=== PATIENT | male | born 1975 | race Caucasian/White ===

== ENCOUNTER 2024-04-23 15:40 | Outpatient (CLI) | payer BC | END 2024-04-23 15:41 | disposition home or self-care (01) | LOC: BICRAD 15:40 | PROVIDERS: ATTEND Family Medicine | DX: M54.50 Low back pain, unspecified (principal); M47.816 Spondylosis without myelopathy or radiculopathy, lumbar region | CPT/HCPCS: 72100 ==

== ENCOUNTER 2025-03-18 07:50 | Outpatient (CLI) | payer BC | END 2025-03-18 07:51 | disposition home or self-care (01) | LOC: SCSMRI 07:50 | PROVIDERS: ATTEND Surgery | DX: M53.3 Sacrococcygeal disorders, not elsewhere classified (principal) | CPT/HCPCS: 72197 ==